=== PATIENT | male | born 1985 | race Caucasian/White ===

== ENCOUNTER 2018-11-06 19:42 | Emergency (ER) | payer SELFPAY ==
[2018-11-06] MEDS ORDERED: SODIUM CHLORIDE 1,000 ML IV STA (19:50)
--- NOTE | 2018-11-06 19:50 | PDOC ---
Rapid Medical Evaluation Time Seen by Provider: 11/06/18 19:48 Medical Evaluation: 11/06/18 19:48 I have performed a brief in-person evaluation of this patient. The patient presents with a chief complaint of: abdominal pain with black stool after excessive ETOH intake over last month Pertinent physical exam findings: Abd SNTND. I have ordered the following: GIB w/u The patient will proceed to the ED for further evaluation. Discharge Disposition - Diagnosis Black stool - Referrals - Patient Instructions - Post Discharge Activity
[2018-11-06 19:54] VITALS: TEMP 98.4; BMI 33.4
--- NOTE | 2018-11-06 21:23 | PDOC ---
History of Present Illness - General Chief Complaint: Rectal Bleed Stated Complaint: BLOODY STOOL Time Seen by Provider: 11/06/18 19:48 - History of Present Illness Initial Comments: 11/06/18 21:21 33m with no pmh presents to the ED with rectal bleeding for the past week. While he was in the [place] he recalls passing gas with formidable force which expelled some fresh blood in his underwear a week ago. After that he notice passing hard stool in the toilet using considerable straining, which was almost always associated with fresh blood in the stool, althought less and less each day. Today, no rectal bleeding was appreciated by the patient. No pain was ever felt by the patient, either rectally or abdominally. Past History - Past Medical History Allergies/Adverse Reactions: Allergies Allergy/AdvReac Type Severity Reaction Status Date / Time No Known Allergies Allergy Verified 11/06/18 19:48 COPD: No - Suicide/Smoking/Psychosocial Hx Smoking History: Never smoked Have you smoked in the past 12 months: No Hx Alcohol Use: Yes Drug/Substance Use Hx: No Review of Systems - Review of Systems Able to Perform ROS?: Yes Is the patient limited [place] proficient: No Constitutional: No: Symptoms Reported HEENTM: No: Symptoms Reported Respiratory: No: Symptoms reported Cardiac (ROS): No: Symptoms Reported ABD/GI: Yes: See HPI : No: Symptoms Reported Integumentary: No: Symptoms Reported Neurological: No: Symptoms reported All Other Systems: Reviewed and Negative *Physical Exam - Vital Signs Last Vital Signs Temp Pulse Resp BP Pulse Ox 98.4 F 84 16 141/91 99 11/06/18 19:48 11/06/18 19:48 11/06/18 19:48 11/06/18 19:48 11/06/18 19:48 - Physical Exam General Appearance: Yes: Nourished, Appropriately Dressed. No: Apparent Distress Neck: negative: Tender Respiratory/Chest: positive: Lungs Clear, Normal Breath Sounds. negative: Chest Tender, Respiratory Distress Cardiovascular: positive: Regular Rhythm, Regular Rate, S1, S2 Gastrointestinal/Abdominal: positive: Normal Bowel Sounds, Flat, Soft. negative : Tender Rectal Exam: positive: normal exam, NL Prostate, normal rectal tone, heme positive stool. negative: heme negative stool, melena, decreased tone ED Treatment Course - LABORATORY CBC & Chemistry Diagram: 11/06/18 21:00 11/06/18 21:00 Medical Decision Making - Medical Decision Making 11/06/18 22:22 Basiic labs to r/.o anemia and dispo with GI consult. 11/06/18 22:22 This is likely internal hemorroids. Will give Gi follow up,. *DC/Admit/Observation/Transfer Diagnosis at time of Disposition: Internal bleeding hemorrhoids - Discharge Dispostion Condition at time of disposition: Improved Decision to Admit order: No - Referrals Referrals: Bronson Blount MD [Staff Physician] - - Patient Instructions Printed Discharge Instructions: DI for Hemorrhoids, DI for Rectal Bleeding Additional Instructions: Come back to the emergency department for any new, worsening or concerning symptom. Follow up with Dr. Blount within the next 2-3 days. - Post Discharge Activity
[2018-11-06 21:24] LABS: BASO % 0.7 % (0-2.0); EOS % 1.4 % (0-4.5); HEMATOCRIT 43.5 % (35.4-49); LYMPH % 45.5 % (8-40); MCHC 34.5 g/dl (32.0-35.9); MEAN CELL VOLUME 89.8 fl (80-96); MEAN PLT VOLUME 9.8 fl (7.5-11.1); MONO % 9.1 % (3.8-10.2); NEUT % 43.3 % (42.8-82.8); PLATELET COUNT 273 K/MM3 (134-434); RBC 4.85 M/mm3 (4.00-5.60); RDW 12.9 % (11.9-15.9); WHITE BLOOD COUNT 5.4 K/mm3 (4.0-10.0)
[2018-11-06 21:31] LABS: INR 0.99 (0.83-1.09); PROTHROMBIN TIME (PATIENT) 11.7 SEC (9.7-13.0)
--- NOTE | 2018-11-06 21:33 | PDOC ---
Attending Attestation - Resident Resident Name: Eduardo Araujo - ED Attending Attestation I have performed the following: I have examined & evaluated the patient, The case was reviewed & discussed with the resident, I agree w/resident's findings & plan, Exceptions are as noted - HPI HPI: 11/06/18 21:33 33M rectal bleeding over the past month. Pt states that he has had several episodes of self-limited bright red blood in the bowl and bright red blood on TP when wiping. Last week, he noted blood in his underwear after passing gas and 2-3 more episodes this week of BRBPR. No khushbu bleeding, no clots, no pain. - Physicial Exam PE: 11/07/18 00:28 Agree with exam as documented by resident - Medical Decision Making 11/07/18 00:28 BRBPR, no hx or findings of melena, hemodynamically stable, no anemia, consider internal hemorrhoid labs wnl vs wnl no further bleeding in ED DC with GI follow up
[2018-11-06 21:45] LABS: BILIRUBIN,TOTAL 0.2 mg/dL (0.2-1); BLOOD UREA NITROGEN 13.4 mg/dL (7-18); CALCIUM 9.5 mg/dL (8.5-10.1); CREATININE 1.3 mg/dL (0.55-1.3); POTASSIUM 4.1 mmol/L (3.5-5.1); TOT PROT 7.3 g/dl (6.4-8.2)
[2018-11-06 22:55] VITALS: BP 145/93; PULSE 76
== END 2018-11-06 22:50 | disposition home or self-care (01) ==
LOC: JER 19:42
PROC: 3E0337Z Introduction of Electrolytic and Water Balance Substance into Peripheral Vein, Percutaneous Approach (ICD-10-PCS; principal; 2018-11-06)
DX: K64.8 Other hemorrhoids (principal)
CPT/HCPCS: 36415; 80053; 82272; 85025; 85044; 85610; 86850; 86900; 86901; 99283-25; J7030

== ENCOUNTER 2020-12-03 15:24 | Emergency (ER) | payer SELFPAY ==
[2020-12-03 15:40] VITALS: BMI 32.6
[2020-12-03] MEDS ORDERED: SODIUM CHLORIDE 1,000 ML IV STA (16:16)
[2020-12-03] MEDS ORDERED: METOCLOPRAMIDE HCL INJECTION 10 MG/2 ML VIAL IVPUSH ONE (16:16)
[2020-12-03] MEDS ORDERED: METOCLOPRAMIDE HCL INJECTION 10 MG/2 ML VIAL ONE (16:35)
[2020-12-03 16:53] LABS: BASO % 0.6 % (0-2.0); EOS % 1.7 % (0-4.5); HEMATOCRIT 48.1 % (35.4-49); HEMOGLOBIN 16.9 GM/dL (11.7-16.9); LYMPH % 38.1 % (8-40); MCH 31.2 pg (25.7-33.7); MEAN CELL VOLUME 89.2 fl (80-96); MONO % 9.1 % (3.8-10.2); NEUT % 50.5 % (42.8-82.8); PLATELET COUNT 276 10^3/uL (134-434); RDW 13.1 % (11.9-15.9); WHITE BLOOD COUNT 6.5 K/mm3 (4.0-10.0)
[2020-12-03 17:29] LABS: BLOOD UREA NITROGEN 15.8 mg/dL (7-18); CALCIUM 10.2 mg/dL (8.5-10.1); CHLORIDE 105 mmol/L (98-107); CO2 31 mmol/L (21-32); CREATININE 1.4 mg/dL (0.55-1.3); GLUCOSE,RANDOM 109 mg/dL (74-106); SODIUM 138 mmol/L (136-145)
[2020-12-03 17:30] LABS: ANION GAP 2 MMOL/L (8-16)
[2020-12-03] MEDS ORDERED: MECLIZINE HCL 25 MG TABLET (FP) PO ONE (18:24)
[2020-12-03] MEDS ORDERED: MECLIZINE HCL 25 MG TABLET (FP) ONE (18:31)
[2020-12-03 19:24] LABS: BLOOD UREA NITROGEN 15.4 mg/dL (7-18); CREATININE 1.3 mg/dL (0.55-1.3)
[2020-12-03 19:25] LABS: CALCIUM 9.2 mg/dL (8.5-10.1)
[2020-12-03 20:06] VITALS: BP 177/68; PULSE 89; TEMP 98.6
== END 2020-12-03 20:06 | disposition home or self-care (01) ==
LOC: JER 15:24
PROC: 3E033GC Introduction of Other Therapeutic Substance into Peripheral Vein, Percutaneous Approach (ICD-10-PCS; principal; 2020-12-03)
PROC: 3E033GC Introduction of Other Therapeutic Substance into Peripheral Vein, Percutaneous Approach (ICD-10-PCS; 2020-12-03)
PROC: 3E0337Z Introduction of Electrolytic and Water Balance Substance into Peripheral Vein, Percutaneous Approach (ICD-10-PCS; 2020-12-03)
DX: H81.11 Benign paroxysmal vertigo, right ear (principal)
CPT/HCPCS: 36415; 80048; 85025; 93005; 93010; 99284-25

== ENCOUNTER 2023-10-16 09:10 | Emergency (ER) | payer SELFPAY ==
[2023-10-16 09:20] VITALS: RESP 18; BMI 36.1
[2023-10-16] MEDS ORDERED: MAG HYDROX/AL HYDROX/SIMETH 30 ML UNIT-DOSE CUP ONE (10:46)
[2023-10-16] MEDS ORDERED: FAMOTIDINE 20 MG/50 ML IVPB 20 MG/50 ML MG IVPB ONE (10:46)
[2023-10-16] MEDS ORDERED: ACETAMINOPHEN INJECTION 100 ML IVPB ONE (10:46)
[2023-10-16] MEDS: SODIUM CHLORIDE 0.9% 500 ML INFUS.BAG IV ONE (11:00)
[2023-10-16] MEDS: ACETAMINOPHEN 1000 MG/100 ML BAG IVPB ONE (11:00)
[2023-10-16] MEDS: FAMOTIDINE 20 MG/50 ML IVPB 20 MG/50 ML MG IVPB ONE (11:00)
[2023-10-16] MEDS: MAG HYDROX/AL HYDROX/SIMETH -MYLANTA- ORAL SUSPENSION PO ONE (11:05)
[2023-10-16 11:15] LABS: BASO % 1.1 % (0-2.0); EOS % 5.2 % (0-4.5); HEMATOCRIT 45.3 % (35.4-49); LYMPH % 40.1 % (8-40); MCH 29.1 pg (25.7-33.7); MCHC 33.1 g/dl (32.0-35.9); MEAN CELL VOLUME 87.7 fl (80-96); MEAN PLT VOLUME 9.8 fl (7.5-11.1); MONO % 7.8 % (3.8-10.2); NEUT % 45.8 % (42.8-82.8); PLATELET COUNT 270 10^3/uL (134-434); RBC 5.16 M/mm3 (4.00-5.60); RDW 13.8 % (11.9-15.9); WHITE BLOOD COUNT 5.4 K/mm3 (4.0-10.0)
[2023-10-16 11:33] LABS: POTASSIUM 4.3 mmol/L (3.5-5.1)
[2023-10-16 11:35] LABS: CALCIUM 9.3 mg/dL (8.5-10.1)
[2023-10-16 11:36] LABS: ALBUMIN 3.6 g/dl (3.4-5.0); BLOOD UREA NITROGEN 22.2 mg/dL (7-18)
[2023-10-16 11:39] LABS: CREATININE 2.1 mg/dL (0.55-1.3)
[2023-10-16 11:40] LABS: BILIRUBIN,TOTAL 0.9 mg/dL (0.2-1); TOT PROT 6.4 g/dl (6.4-8.2)
[2023-10-16 11:44] LABS: N-TERMINAL BNP 8189.8 pg/ml (5-125)
[2023-10-16 13:21] VITALS: BP 152/110; PULSE 99; TEMP 97.8
== END 2023-10-16 13:31 | disposition home or self-care (01) ==
LOC: JER 09:10
PROC: 3E033GC Introduction of Other Therapeutic Substance into Peripheral Vein, Percutaneous Approach (ICD-10-PCS; principal; 2023-10-16)
PROC: 3E033NZ Introduction of Analgesics, Hypnotics, Sedatives into Peripheral Vein, Percutaneous Approach (ICD-10-PCS; 2023-10-16)
DX: I50.9 Heart failure, unspecified (principal); R06.02 Shortness of breath; R10.9 Unspecified abdominal pain; R14.0 Abdominal distension (gaseous); Z20.822 Contact with and (suspected) exposure to COVID-19
CPT/HCPCS: 0241U-QW; 36415; 71046-TC-FY; 80053; 83880; 84484; 85025; 93005; 93010; 99285-25; J0131

== ENCOUNTER 2024-09-24 12:52 | Inpatient (IN) | payer OTHER ==
[2024-09-24 14:04] LABS: ABSOLUTE IMMATURE GRANULOCYTES 0.02 x10^3/uL (0.0-0.031); BASOPHILS # 0.04 x10^3/uL (0.01-0.08); EOSINOPHIL % 1.5 % (0.8-7.0); EOSINOPHILS # 0.08 x10^3/uL (0.04-0.54); MCHC 33.1 g/dl (32.3-36.5); MEAN CELL VOLUME 87.2 fl (79.0-92.2); MEAN PLT VOLUME 11.2 fl (9.4-12.4); MONOCYTE # 0.33 x10^3/uL (0.30-0.82); MONOCYTE % 6.4 % (5.3-12.2); RDW 13.7 % (12.0-15.6)
[2024-09-24 14:08] VITALS: BMI 31.8
[2024-09-24 14:11] LABS: INR 1.03 (0.83-1.09); PROTHROMBIN TIME (PATIENT) 11.2 SEC (9.7-13.0)
[2024-09-24 14:13] LABS: ACTIVATED PTT 32.9 SECONDS (25.2-36.5)
[2024-09-24 14:23] LABS: CO2 26.0 mmol/L (21-32); GLUCOSE,RANDOM 107.0 mg/dL (74-106)
[2024-09-24 14:26] LABS: CREATININE 2.5 mg/dL (0.55-1.3); SGOT/AST 24.0 U/L (15-37); SGPT/ALT 80.0 U/L (13-61)
[2024-09-24 14:27] LABS: TOT PROT 7.8 g/dl (6.4-8.2)
[2024-09-24 14:28] LABS: ALK PHOS 110.0 U/L (45-117)
[2024-09-24] MEDS ORDERED: CARVEDILOL 3.125 MG TABLET (FP) ONE (15:45)
[2024-09-24] MEDS ORDERED: amLODIPine BESYLATE 10 MG TABLET (FP) ONE (15:46)
[2024-09-24] MEDS: amLODIPine BESYLATE 10 MG TABLET (FP) PO ONE (15:52)
[2024-09-24] MEDS: CARVEDILOL 3.125 MG TABLET (FP) PO ONE (15:52)
[2024-09-24 16:23] LABS: HCV DIAGNOSTIC IN-HOUSE W/RFLX NON-REACTIVE (NONREACTIVE)
[2024-09-24 16:25] LABS: HIV INTERPRETATION NEGATIVE (NEGATIVE)
[2024-09-24] MEDS: PANTOPRAZOLE 40 MG TABLET PO SCH (17:58)
[2024-09-24] MEDS: ASPIRIN 81 MG CHEWABLE TABLETS PO SCH (17:58)
[2024-09-24] MEDS: HEPARIN NA (PORCINE) 5,000 UNITS/ML 1ML VIAL SQ SCH (21:52)
[2024-09-24] MEDS: CARVEDILOL 3.125 MG TABLET (FP) PO SCH (21:53)
[2024-09-25] MEDS: SODIUM CHLORIDE 0.9% 500 ML INFUS.BAG IV ONE (07:34)
[2024-09-25 07:53] LABS: CO2 28.0 mmol/L (21-32); GLUCOSE,RANDOM 110.0 mg/dL (74-106)
[2024-09-25 07:56] LABS: CREATININE 2.0 mg/dL (0.55-1.3)
[2024-09-25 08:05] LABS: EPI CELLS 10 /uL (0-25.1); HYALINE CASTS 1 /uL (0-3.1); URINE APPEARANCE CLEAR; URINE BACTERIA 3 /uL (0-1359); URINE BILIRUBIN NEGATIVE (NEGATIVE); URINE COLOR YELLOW; URINE GLUCOSE (UA) 3+ (NEGATIVE); URINE KETONE NEGATIVE (NEGATIVE); URINE LEUK ESTERASE NEGATIVE (NEGATIVE); URINE NITRITE NEGATIVE (NEGATIVE); URINE PROTEIN 3+ (NEGATIVE); URINE RBC 3 /uL (0-23.9); URINE UROBILINOGEN 1.0 mg/dL (0.2-1.0); URINE WBC 6 /uL (0-25.8)
[2024-09-25] MEDS: CARVEDILOL 6.25 MG TABLET (FP) PO SCH (10:26)
[2024-09-25] MEDS: FUROSEMIDE 40 MG/4 ML INJECTABLE VIAL IVPUSH ONE (10:28)
[2024-09-25] MEDS: amLODIPine BESYLATE 10 MG TABLET (FP) PO SCH (10:28)
[2024-09-25 11:22] LABS: LDL CHOLESTEROL (ONLY SJRH) 127.0 mg/dL (5-100)
[2024-09-26 08:52] LABS: MCHC 32.6 g/dl (32.3-36.5); MEAN CELL VOLUME 88.5 fl (79.0-92.2); MEAN PLT VOLUME 12.4 fl (9.4-12.4); RDW 13.7 % (12.0-15.6)
[2024-09-26 09:27] LABS: CO2 30.0 mmol/L (21-32); GLUCOSE,RANDOM 147.0 mg/dL (74-106)
[2024-09-26 09:28] LABS: SGOT/AST 23.0 U/L (15-37); SGPT/ALT 60.0 U/L (13-61)
[2024-09-26 09:30] LABS: TOT PROT 7.8 g/dl (6.4-8.2)
[2024-09-26 09:31] LABS: ALK PHOS 110.0 U/L (45-117)
[2024-09-26] MEDS: CARVEDILOL 12.5 MG TABLET (FP) PO SCH (09:31)
[2024-09-26] MEDS: SACUBITRIL/VALSARTAN 24 MG-26 MG TABLET PO SCH (09:31)
[2024-09-26 09:32] LABS: CREATININE 2.1 mg/dL (0.55-1.3)
[2024-09-26] MEDS: FUROSEMIDE 40 MG/4 ML INJECTABLE VIAL IVPUSH ONE (09:33)
[2024-09-26 09:36] LABS: N-TERMINAL BNP 4117.8 pg/ml (5-125)
[2024-09-26] MEDS: ROSUVASTATIN CA 10 MG TABLET PO SCH (21:05)
[2024-09-27] MEDS ORDERED: SODIUM CHLORIDE 1,000 ML IV SCH (04:15)
[2024-09-27] MEDS: SODIUM CHLORIDE 1,000 ML IV SCH (04:15)
[2024-09-27 07:13] LABS: ABSOLUTE IMMATURE GRANULOCYTES 0.02 x10^3/uL (0.0-0.031); BASOPHILS # 0.04 x10^3/uL (0.01-0.08); EOSINOPHIL % 2.1 % (0.8-7.0); EOSINOPHILS # 0.11 x10^3/uL (0.04-0.54); MCHC 33.0 g/dl (32.3-36.5); MEAN CELL VOLUME 86.9 fl (79.0-92.2); MEAN PLT VOLUME 11.2 fl (9.4-12.4); MONOCYTE # 0.49 x10^3/uL (0.30-0.82); MONOCYTE % 9.3 % (5.3-12.2); RDW 13.6 % (12.0-15.6)
[2024-09-27 08:15] LABS: CO2 26.0 mmol/L (21-32); GLUCOSE,RANDOM 110.0 mg/dL (74-106)
[2024-09-27 08:18] LABS: CREATININE 2.1 mg/dL (0.55-1.3); SGOT/AST 15.0 U/L (15-37); SGPT/ALT 47.0 U/L (13-61)
[2024-09-27 08:19] LABS: TOT PROT 6.4 g/dl (6.4-8.2)
[2024-09-27 08:20] LABS: ALK PHOS 84.0 U/L (45-117)
[2024-09-27] MEDS ORDERED: ASPIRIN 81 MG CHEWABLE TABLETS PO SCH (19:00)
[2024-09-27] MEDS: SACUBITRIL/VALSARTAN 24 MG-26 MG TABLET PO SCH (21:20)
[2024-09-27] MEDS: HEPARIN NA (PORCINE) 5,000 UNITS/ML 1ML VIAL SQ SCH (21:21)
[2024-09-28] MEDS: PANTOPRAZOLE 40 MG TABLET PO SCH (07:27)
[2024-09-28 07:39] LABS: ABSOLUTE IMMATURE GRANULOCYTES 0.01 x10^3/uL (0.0-0.031); BASOPHILS # 0.05 x10^3/uL (0.01-0.08); EOSINOPHIL % 2.5 % (0.8-7.0); EOSINOPHILS # 0.12 x10^3/uL (0.04-0.54); MCHC 33.1 g/dl (32.3-36.5); MEAN CELL VOLUME 88.2 fl (79.0-92.2); MEAN PLT VOLUME 11.6 fl (9.4-12.4); MONOCYTE # 0.45 x10^3/uL (0.30-0.82); MONOCYTE % 9.2 % (5.3-12.2); RDW 13.6 % (12.0-15.6)
[2024-09-28 08:45] LABS: CO2 27.0 mmol/L (21-32); CREATININE 2.0 mg/dL (0.55-1.3); GLUCOSE,RANDOM 110.0 mg/dL (74-106); SGOT/AST 18.0 U/L (15-37)
[2024-09-28 08:47] LABS: TOT PROT 6.7 g/dl (6.4-8.2)
[2024-09-28 08:48] LABS: ALK PHOS 79.0 U/L (45-117)
[2024-09-28 09:01] LABS: SGPT/ALT 43.0 U/L (13-61)
[2024-09-28 21:08] LABS: ANTIGLOMERULAR BASEMENT MEN.AB <0.2 units (0.0-0.9); C-ANCA <1:20 titer (Neg:<1:20)
[2024-09-30 06:49] LABS: ABSOLUTE IMMATURE GRANULOCYTES 0.01 x10^3/uL (0.0-0.031); BASOPHILS # 0.06 x10^3/uL (0.01-0.08); EOSINOPHIL % 2.6 % (0.8-7.0); EOSINOPHILS # 0.14 x10^3/uL (0.04-0.54); MCHC 32.8 g/dl (32.3-36.5); MEAN CELL VOLUME 88.0 fl (79.0-92.2); MEAN PLT VOLUME 11.4 fl (9.4-12.4); MONOCYTE # 0.65 x10^3/uL (0.30-0.82); MONOCYTE % 11.9 % (5.3-12.2); RDW 13.9 % (12.0-15.6)
[2024-09-30 07:17] LABS: CO2 27.0 mmol/L (21-32); GLUCOSE,RANDOM 110.0 mg/dL (74-106)
[2024-09-30 07:21] LABS: CREATININE 1.7 mg/dL (0.55-1.3); SGOT/AST 13.0 U/L (15-37); SGPT/ALT 33.0 U/L (13-61)
[2024-09-30 07:22] LABS: TOT PROT 6.5 g/dl (6.4-8.2)
[2024-09-30 07:23] LABS: ALK PHOS 79.0 U/L (45-117)
[2024-09-30] MEDS: EMPAGLIFLOZIN (JARDIANCE) 10 MG TABLET PO SCH (09:19)
[2024-10-01 21:22] VITALS: BP 134/79; PULSE 82; TEMP 97.3
[2024-10-01 22:44] VITALS: RESP 18
== END 2024-10-01 21:45 | disposition short-term general hospital (02) | DRG 194 ==
LOC: JER 12:52 → JERBED 14:38 → J4W 17:25
PROVIDERS: ADMIT Internal Medicine; ATTEND Internal Medicine
DX: I13.0 Hypertensive heart and chronic kidney disease with heart failure and stage 1 through stage 4 chronic kidney disease, or unspecified chronic kidney disease (principal); I47.29 Other ventricular tachycardia; N17.9 Acute kidney failure, unspecified; E11.22 Type 2 diabetes mellitus with diabetic chronic kidney disease; I73.9 Peripheral vascular disease, unspecified; I95.9 Hypotension, unspecified; E78.5 Hyperlipidemia, unspecified; N18.9 Chronic kidney disease, unspecified; R00.1 Bradycardia, unspecified; R06.01 Orthopnea; R06.02 Shortness of breath; R07.9 Chest pain, unspecified; I50.21 Acute systolic (congestive) heart failure
CPT/HCPCS: 36415; 71045-TC-FY; 76775-TC; 80048; 80053; 80061; 80076; 81003; 82962; 83036; 83516; 83520; 83735; 83880; 84100; 84155; 84165; 84439; 84443; 84481; 84484; 85025; 85027; 85610; 85730; 86038; 86225; 86256; 86803; 86850; 86900; 86901; 87389; 93005; 93010; 93306-TC; 99285-25